=== PATIENT | female | born 1955 | race Two or more races ===

== ENCOUNTER 2023-08-01 13:31 | Outpatient (CLI) | payer OTHER | END 2023-08-01 13:35 | disposition home or self-care (01) | LOC: NUCLEAR 13:31 | PROVIDERS: ATTEND Orthopaedic Surgery | DX: M81.0 Age-related osteoporosis without current pathological fracture (principal) ==

== ENCOUNTER 2023-08-14 13:20 | Outpatient (CLI) | payer OTHER | END 2023-08-14 13:27 | disposition home or self-care (01) | LOC: TOM 13:20 | PROVIDERS: ATTEND Orthopaedic Surgery | DX: M76.822 Posterior tibial tendinitis, left leg (principal); M25.572 Pain in left ankle and joints of left foot ==